=== PATIENT | male | born 1990 | race African-American/Black ===

== ENCOUNTER 2019-09-26 17:41 | Emergency (ER) | payer SELFPAY ==
--- NOTE | 2019-09-26 17:58 | EDM.PDOC ---
ED HPI GENERAL MEDICAL PROBLEM - General Chief Complaint: Cardiovascular Problem Stated Complaint: HIGH BLOOD PRESSURE Time Seen by Provider: 09/26/19 17:58 Source of Information: Reports: Patient History Limitations: Reports: No Limitations - History of Present Illness INITIAL COMMENTS - FREE TEXT/NARRATIVE: HISTORY AND PHYSICAL: History of present illness: Patient is a 29-year-old male presents to the ED with complaint of high blood pressure. Patient states this morning he felt like his heart was racing and he was dizzy. He states he felt like his blood pressure was high at that time but did not take his BP. He states the symptoms have since resolved. He denies any chest pain, shortness of breath, fevers, chills, cough, nausea, vomiting, head injury or trauma. He denies significant past medical history. Smokes 1ppd x 5 years. Denies alcohol or illicit drug use. Review of systems: As per history of present illness and below otherwise all systems reviewed and negative. Past medical history: As per history of present illness and as reviewed below otherwise noncontributory. Surgical history: As per history of present illness and as reviewed below otherwise noncontributory. Social history: No reported history of drug or alcohol abuse. Family history: As per history of present illness and as reviewed below otherwise noncontributory. Physical exam: General: Patient sitting comfortably in no acute distress and nontoxic appearing HEENT: Atraumatic, normocephalic, pupils reactive, negative for conjunctival pallor or scleral icterus, mucous membranes moist, throat clear, neck supple, nontender, trachea midline. No meningeal signs. Lungs: Clear to auscultation, breath sounds equal bilaterally, chest nontender. Heart: S1S2, regular, negative for clicks, rubs, or overt murmur. Abdomen: Soft, nondistended, nontender. Negative for masses or hepatosplenomegaly. Negative for costovertebral tenderness. No rigidity, rebound , guarding. Pelvis: Stable nontender. Genitourinary: Deferred. Rectal: Deferred. Extremities: Atraumatic, negative for cords or calf pain. Neurovascular unremarkable. Neuro: Awake, alert, oriented. Cranial nerves II through XII unremarkable. Cerebellum unremarkable. Motor and sensory unremarkable throughout. Exam nonfocal. Notes: EKG shows normal sinus rhythm with rate of 70. No STEMI on EKG. Discussed with patient that blood pressure is elevated (185/134), patient remains asymptomatic. He was offered medication to reduce blood pressure in ED, which he declined and requesting discharge home. BP at time of discharge was 166 /112. He was advised to follow up with primary care provider and to return to ED if new or worsening symptoms. Diagnostics: CBC, CMP, troponin, EKG Therapeutics: declined Prescriptions: none Impression: Elevated blood pressure Plan: Follow up with primary care provider Return to ED as needed as discussed Definitive disposition and diagnosis as appropriate pending reevaluation and review of above. - Related Data Allergies Allergy/AdvReac Type Severity Reaction Status Date / Time No Known Allergies Allergy Verified 09/26/19 17:57 Home Meds: Home Meds . [No Known Home Meds] 09/26/19 [History] ED ROS GENERAL - Review of Systems Review Of Systems: Comprehensive ROS is negative, except as noted in HPI. ED EXAM, GENERAL - Physical Exam Exam: See Below (see dictation) Course - Vital Signs Last Recorded V/S: Last Vital Signs Temp 97.1 F 09/26/19 17:47 Pulse 69 09/26/19 19:00 Resp 16 09/26/19 19:00 BP 166/112 H 09/26/19 19:00 Pulse Ox 99 09/26/19 19:00 Orthostatic Blood Pressure [ 185/134 Standing] Orthostatic Blood Pressure [ 185/131 Sitting] Orthostatic Blood Pressure [ 185/125 Supine] - Orders/Labs/Meds Orders: Active Orders 24 hr Category Date Time Status EKG Documentation Completion [RC] STAT Care 09/26/19 18:04 Active Orthostatic Vital Signs [RC] ASDIRECTED Care 09/26/19 18:04 Active UA RFX ALISSA AND CULT IF INDIC [URIN] Stat Lab 09/26/19 18:19 Ordered Sodium Chloride 0.9% [Saline Flush] Med 09/26/19 18:19 Active 10 ml FLUSH ASDIRECTED PRN Sodium Chloride 0.9% [Saline Flush] Med 09/26/19 18:19 Active 2.5 ml FLUSH ASDIRECTED PRN Saline Lock Insert [OM.PC] Stat Oth 09/26/19 18:19 Ordered Medication Orders Sodium Chloride (Saline Flush) 10 ml FLUSH ASDIRECTED PRN PRN Reason: Keep Vein Open Sodium Chloride (Saline Flush) 2.5 ml FLUSH ASDIRECTED PRN PRN Reason: Keep Vein Open Labs: Laboratory Tests 09/26/19 09/26/19 Range/Units 18:33 18:33 WBC 7.77 (4.0-11.0) K/uL RBC 5.23 (4.50-5.90) M/uL Hgb 17.9 H (13.0-17.0) g/dL Hct 49.6 (38.0-50.0) % MCV 94.8 (80.0-98.0) fL MCH 34.2 H (27.0-32.0) pg MCHC 36.1 (31.0-37.0) g/dL RDW Std Deviation 42.8 (28.0-62.0) fl RDW Coeff of Osmany 12 (11.0-15.0) % Plt Count 180 (150-400) K/uL MPV 10.00 (7.40-12.00) fL Neut % (Auto) 59.4 (48.0-80.0) % Lymph % (Auto) 32.0 (16.0-40.0) % Loup % (Auto) 8.5 (0.0-15.0) % Eos % (Auto) 0.0 (0.0-7.0) % Baso % (Auto) 0.1 (0.0-1.5) % Neut # (Auto) 4.6 (1.4-5.7) K/uL Lymph # (Auto) 2.5 H (0.6-2.4) K/uL Loup # (Auto) 0.7 (0.0-0.8) K/uL Eos # (Auto) 0.0 (0.0-0.7) K/uL Baso # (Auto) 0.0 (0.0-0.1) K/uL Nucleated RBC % 0.0 /100WBC Nucleated RBCs # 0 K/uL Sodium 140 (136-148) mmol/L Potassium 3.5 (3.5-5.1) mmol/L Chloride 103 (98-107) mmol/L Carbon Dioxide 29.3 (21.0-32.0) mmol/L BUN 13 (7.0-18.0) mg/dL Creatinine 1.0 (0.8-1.3) mg/dL Est Cr Clr Drug Dosing 79.44 mL/min Estimated GFR (MDRD) > 60.0 ml/min Glucose 89 (74-106) mg/dL Calcium 9.2 (8.5-10.1) mg/dL Total Bilirubin 0.8 (0.2-1.0) mg/dL AST 31 (15-37) IU/L ALT 34 (14-63) IU/L Alkaline Phosphatase 77 (46-116) U/L Troponin I < 0.050 (0.000-0.056) ng/mL Total Protein 8.4 H (6.4-8.2) g/dL Albumin 4.5 (3.4-5.0) g/dL Globulin 3.9 (2.6-4.0) g/dL Albumin/Globulin Ratio 1.2 (0.9-1.6) Meds: Medications Generic Name Dose Route Start Last Admin Trade Name Freq PRN Reason Stop Dose Admin Sodium Chloride 10 ml 09/26/19 18:19 Saline Flush FLUSH ASDIRECTED PRN Keep Vein Open Sodium Chloride 2.5 ml 09/26/19 18:19 Saline Flush FLUSH ASDIRECTED PRN Keep Vein Open Discontinued Medications Generic Name Dose Route Start Last Admin Trade Name Freq PRN Reason Stop Dose Admin Labetalol HCl 20 mg 09/26/19 19:08 Normodyne IVPUSH 09/26/19 19:09 ONETIME ONE Protocol Departure - Departure Time of Disposition: 19:15 Disposition: Home, Self-Care 01 Condition: Good Clinical Impression: Elevated blood pressure reading Referrals: PCP,None [Primary Care Provider] - Forms: ED Department Discharge Additional Instructions: The following information is given to patients seen in the emergency department who are being discharged to home. This information is to outline your options for follow-up care. We provide all patients seen in our emergency department with a follow-up referral. The need for follow-up, as well as the timing and circumstances, are variable depending upon the specifics of your emergency department visit. If you don't have a primary care physician on staff, we will provide you with a referral. We always advise you to contact your personal physician following an emergency department visit to inform them of the circumstance of the visit and for follow-up with them and/or the need for any referrals to a consulting specialist. The emergency department will also refer you to a specialist when appropriate. This referral assures that you have the opportunity for follow-up care with a specialist. All of these measure are taken in an effort to provide you with optimal care, which includes your follow-up. Under all circumstances we always encourage you to contact your private physician who remains a resource for coordinating your care. When calling for follow-up care, please make the office aware that this follow-up is from your recent emergency room visit. If for any reason you are refused follow-up, please contact the [facility] Emergency Department at and asked to speak to the emergency department charge nurse. [facility] [address] [place] [address] [id number] [address] Follow up with primary care provider Return to ED as needed as discussed Sepsis Event Note - Evaluation Sepsis Screening Result: No Definite Risk - Focused Exam Vital Signs: Vital Signs Temp Pulse Resp BP Pulse Ox 09/26/19 19:00 69 16 166/112 H 99 09/26/19 18:30 83 16 185/134 H 97 09/26/19 17:47 97.1 F 80 16 171/107 H 97 Date Exam was Performed: 09/26/19 Time Exam was Performed: 19:16 - My Orders Last 24 Hours: My Active Orders 09/26/19 18:04 EKG Documentation Completion [RC] STAT Orthostatic Vital Signs [RC] ASDIRECTED 09/26/19 18:19 UA RFX ALISSA AND CULT IF INDIC [URIN] Stat Sodium Chloride 0.9% [Saline Flush] 10 ml FLUSH ASDIRECTED PRN Sodium Chloride 0.9% [Saline Flush] 2.5 ml FLUSH ASDIRECTED PRN Saline Lock Insert [OM.PC] Stat - Assessment/Plan Last 24 Hours: My Active Orders 09/26/19 18:04 EKG Documentation Completion [RC] STAT Orthostatic Vital Signs [RC] ASDIRECTED 09/26/19 18:19 UA RFX ALISSA AND CULT IF INDIC [URIN] Stat Sodium Chloride 0.9% [Saline Flush] 10 ml FLUSH ASDIRECTED PRN Sodium Chloride 0.9% [Saline Flush] 2.5 ml FLUSH ASDIRECTED PRN Saline Lock Insert [OM.PC] Stat
[2019-09-26] MEDS ORDERED: Sodium Chloride 0.9% 10 ML Syringe FLUSH PRN (18:19)
[2019-09-26] MEDS ORDERED: Sodium Chloride 0.9% 2.5 ML Syringe FLUSH PRN (18:19)
[2019-09-26 19:04] LABS: BLOOD UREA NITROGEN,BUN 13 mg/dL (7.0-18.0); CARBON DIOXIDE,CO2 29.3 mmol/L (21.0-32.0); CHLORIDE,CL 103 mmol/L (98-107); GLUCOSE RANDOM 89 mg/dL (74-106); POTASSIUM,K 3.5 mmol/L (3.5-5.1); SODIUM,NA 140 mmol/L (136-148)
[2019-09-26] MEDS ORDERED: Labetalol 100 MG/20 ML MDV IVPUSH ONE (19:08)
== END 2019-09-26 19:32 | disposition home or self-care (01) ==
LOC: MW.ED 17:41
DX: R03.0 Elevated blood-pressure reading, without diagnosis of hypertension (principal)
CPT/HCPCS: 36415; 80053; 84484; 85025; 93005; 99282; 99283-25

== ENCOUNTER 2020-01-29 05:31 | Emergency (ER) | payer SELFPAY ==
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
== END 2020-01-29 06:38 ==
LOC: MW.ED 05:31
DX: S10.93XA Contusion of unspecified part of neck, initial encounter (principal); I10 Essential (primary) hypertension; X58.XXXA Exposure to other specified factors, initial encounter
CPT/HCPCS: 99282; 99283

== ENCOUNTER 2020-01-31 12:06 | Emergency (ER) | payer SELFPAY ==
[2020-01-31] MEDS ORDERED: Diphtheria,Pertussis(Acell),Tetanus Vaccine 0.5 ML Syringe IM ONE (13:01)
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
--- NOTE | 2020-01-31 13:27 | CR ---
Left wrist: 3 views left wrist were obtained. Comparison: No prior wrist studies available. Findings: Lunate bone is tilted anteriorly. There is widening of the distance between the navicular bone and lunate bone compatible with intercarpal ligament rupture. No acute fracture or dislocation is otherwise seen. Impression: 1. Findings compatible with intercarpal ligament rupture between the navicular bone lunate. Lunate is anteriorly angulated which is abnormal. Uncertain if this finding is acute or chronic. 2. No other acute finding is appreciated. Diagnostic code #3 This report was dictated in MDT
== END 2020-01-31 14:30 | disposition home or self-care (01) ==
LOC: MW.ED 12:06
DX: S63.392A Traumatic rupture of other ligament of left wrist, initial encounter (principal); S00.81XA Abrasion of other part of head, initial encounter; Y04.0XXA Assault by unarmed brawl or fight, initial encounter
CPT/HCPCS: 29125; 73110-26-LT; 73110-LT; 99283

== ENCOUNTER 2020-07-11 18:30 | Emergency (ER) | payer SELFPAY ==
[2020-07-11] MEDS ORDERED: Ketorolac 30 MG/ML SDV IM STA (21:02)
[2020-07-11] MEDS ORDERED: Diphtheria,Pertussis(Acell),Tetanus Vaccine 0.5 ML Syringe IM ONE (21:04)
[2020-07-11] MEDS ORDERED: Diphtheria,Pertussis(Acell),Tetanus Vaccine 0.5 ML Syringe ONE (21:13)
--- NOTE | 2020-07-11 21:39 | CR ---
HISTORY: Left hand injury. TECHNIQUE: Two views of left hand. COMPARISON: No prior. FINDINGS: No acute fracture or dislocation. Joint spaces are maintained. No radiopaque foreign body or soft tissue gas. IMPRESSION: No acute fracture or dislocation. Dictated by Myron Aquino MD @ Jul 11 2020 9:37PM Signed by Dr. Myron Aquino @ Jul 11 2020 9:38PM
[2020-07-11] MEDS ORDERED: Lidocaine 1% 10 ML MDV INJECT ONE (21:43)
[2020-07-11] MEDS ORDERED: Cephalexin 500 MG Cap PO ONE (21:44)
[2020-07-11] MEDS ORDERED: Sulfamethoxazole/Trimethoprim 800-160 MG Tab PO ONE (21:44)
[2020-07-11] MEDS ORDERED: Bacitracin Oint 1 GM U/D Packet ONE (22:27)
[2020-07-11] MEDS ORDERED: Bacitracin Oint 1 GM U/D Packet TOP ONE (22:35)
--- NOTE | 2020-07-11 22:42 | EDM.PDOC ---
ED HPI GENERAL MEDICAL PROBLEM - General Chief Complaint: Upper Extremity Injury/Pain Stated Complaint: RT HAND INJURY Time Seen by Provider: 07/11/20 20:19 - History of Present Illness INITIAL COMMENTS - FREE TEXT/NARRATIVE: CHIEF COMPLAINT(S): Right thumb pain and injury HISTORY OF PRESENT ILLNESS: This is a 30-year-old man with out any significant past medical history who comes to the emergency department with a chief com plaint of right thumb pain and injury. The patient states that approximately 3 days ago he smashed his right thumb in a metal door at work. He states that since that time he has been experiencing 10 out of 10 throbbing pain in his right thumb. The patient is right-hand dominant. He states that there is no radiation of this pain but he cannot move his thumb secondary to pain. He denies any redness but states that there is some swelling. He states that he was sent here by occupational health for evaluation. He denies any other injuries. He denies any numbness or tingling. He states that the pain is exacerbated by movement. There is nothing that seems to be relieving it however he has not tried any pain medications. He states that he does not know if his tetanus is up-to-date. REVIEW OF SYSTEMS: Constitutional: Denies fever, chills. Eyes: Denies eye pain Ears, Nose, Mouth, & Throat: Denies earache Cardiovascular: Denies chest pain Respiratory: Denies shortness of breath Gastrointestinal: Denies Nausea, vomiting, diarrhea, hematochezia. Genitourinary: Denies hematuria Skin:Denies a rash MSK: Positive for right thumb pain and swelling Neurological: Denies blurred vision, numbness, tingling, weakness Psychiatric: Denies depression PAST MEDICAL HISTORY: As per history of present illness and as reviewed below otherwise noncontributory. SURGICAL HISTORY: As per history of present illness and as reviewed below otherwise noncontributory. SOCIAL HISTORY: As per history of present illness and as reviewed below otherwise noncontributory. FAMILY HISTORY: As per history of present illness and as reviewed below otherwise noncontributory. EXAMINATION OF ORGAN SYSTEMS/BODY AREAS: Constitutional: Blood pressure is 209/143, heart rate 70, respiratory rate 16 with an oxygen saturation 9 9% on room air. Temperature 36.4 General: Young man who appears to be in a moderate amount of pain. Psychiatric: Appears anxious and is moving around however cooperative Eyes: No scleral icterus or conjunctival erythema Cardiovascular: Regular, rate, and rhythm. No gallops, murmurs, or rubs. Bilateral upper extremity pulses symmetric and intact. No peripheral edema. No JVD. Respiratory: Lungs clear to auscultation bilaterally. No wheezes, rales, or rhonchi. Musculoskeletal: The patient does have motion of his right thumb however is limited secondary to pain. The patient's distal right thumb is swollen and mildly erythematous with mild fluctuance. There is less than 25% subungual hematoma. There is no paronychia. There is anatomical snuffbox tenderness. The patient has full range of motion at the wrist. No obvious deformities. Skin: Distal right thumb is erythematous and swollen Neurological: Alert, GCS 15 distal sensation is intact MEDICAL DECISION MAKING AND COURSE IN THE ED WITH INTERPRETATION/REVIEW OF DIAGNOSTIC STUDIES: This is a 30-year-old man without any reported past medical history who comes to the emergency department with right thumb injury who has evidence of a mild subungual hematoma with a distal right thumb that is swollen and erythematous concerning for felon with scaphoid tenderness on examination. Will obtain an x-ray of his right hand to evaluate. We will provide the patient with Toradol IM for pain relief. The radiological images were viewed by myself along with reading the report from the radiologist. X-ray of the right hand does not reveal any fracture or dislocation. On reevaluation, the patient had continued pain. I did discuss with him at this time that I do believe we need to do an incision and drainage for a felon. I started the patient on Keflex and Bactrim for presumed felon at this time. He was amenable to incision and drainage. He refused his tetanus shot. Incision and drainage was performed by myself. The area was prepped with povidone and a dental block was performed with 1% lidocaine with 1 cc injection on the lateral side of the thumb. An incision was made with an 11 blade on the radial side of the thumb. No obvious purulent material was drained. Bacitracin was applied and a hemostatic dressing was placed Given that the patient is right-hand dominant and there is concern for scaphoid fracture and felon I did contact hand surgery and at [facility] in [place] and spoke with he recommended thumb spica splint and follow-up tomorrow in his clinic. I did discuss the plan with the patient. He was amenable to this plan. He was provided with discharge instructions. He is provided with strict return precautions. He is amenable to discharge and had no further questions Thumb spica splint was placed by RN. Post splint placement revealed distal capillary refill less than 2 seconds and distal sensation intact. DISPOSITION: The patient was discharged home in stable condition. The patient will follow up with hand surgery tomorrow CONDITION: Fair PROCEDURES: Incision and drainage of right thumb felon, FINAL IMPRESSION(S)/DIAGNOSES: 1. Acute right thumb injury, suspect scaphoid fracture 2. Acute right thumb felon status post incision and drainage 3. Acute small right thumb subungual hematoma DME: Right thumb spica splint Indication: Anatomical snuffbox tenderness, concern for scaphoid fracture Benefit: Immobilization Duration: Until follow-up with hand surgery Gilberto Mckee M.D. right thumb Pain Score (Numeric/FACES): 10 - Related Data Allergies Allergy/AdvReac Type Severity Reaction Status Date / Time No Known Allergies Allergy Verified 07/11/20 20:11 Home Meds: Home Meds Acetaminophen [Tylenol Extra Strength] 500 mg PO Q6HR #28 tablet 07/11/20 [Rx] Ibuprofen 400 mg PO Q6HR #28 tablet 07/11/20 [Rx] Sulfamethoxazole/Trimethoprim [Bactrim Ds Tablet] 1 each PO BID #14 tablet 07/11/20 [Rx] cephALEXin [Cephalexin] 500 mg PO Q6HR #28 tablet 07/11/20 [Rx] Past Medical History - Past Health History Medical/Surgical History: Denies Medical/Surgical History HEENT History: Reports: None Cardiovascular History: Reports: None Respiratory History: Reports: None Gastrointestinal History: Reports: None Genitourinary History: Reports: None Musculoskeletal History: Reports: None Neurological History: Reports: None Psychiatric History: Reports: None Endocrine/Metabolic History: Reports: None Hematologic History: Reports: None Immunologic History: Reports: None Oncologic (Cancer) History: Reports: None Dermatologic History: Reports: None - Infectious Disease History Infectious Disease History: Reports: None - Past Surgical History Head Surgeries/Procedures: Reports: None Social & Family History - Family History Family Medical History: No Pertinent Family History HEENT: Reports: None - Caffeine Use Caffeine Use: Reports: None - Recreational Drug Use Recreational Drug Use: No Review of Systems - Review of Systems Review Of Systems: See Below ED EXAM, GENERAL - Physical Exam Exam: See Below Course - Vital Signs Last Recorded V/S: Last Vital Signs Temp 36.4 C 07/11/20 20:09 Pulse 60 07/11/20 23:00 Resp 18 07/11/20 23:00 BP 180/112 H 07/11/20 23:00 Pulse Ox 97 07/11/20 23:00 - Orders/Labs/Meds Meds: Medications Discontinued Medications Generic Name Dose Route Start Last Admin Trade Name Freq PRN Reason Stop Dose Admin Bacitracin Confirm 07/11/20 22:27 07/11/20 22:57 Bacitracin Oint 1 Gm Administered 07/11/20 22:28 Not Given Dose 1 dose .ROUTE .STK-MED ONE Bacitracin 1 dose 07/11/20 22:35 07/11/20 22:37 Bacitracin Oint 1 Gm TOP 07/11/20 22:36 1 dose ONETIME ONE Administration Cephalexin 500 mg 07/11/20 21:44 07/11/20 22:03 Keflex PO 07/11/20 21:45 500 mg ONETIME ONE Administration Diphtheria/Tetanus/Acell Pertussis 0.5 ml 07/11/20 21:04 07/11/20 21:11 Boostrix IM 07/11/20 21:05 Not Given .ONCE ONE Diphtheria/Tetanus/Acell Pertussis Confirm 07/11/20 21:13 07/11/20 21:30 Boostrix Administered 07/11/20 21:14 Not Given Dose 0.5 ml .ROUTE .STK-MED ONE Ketorolac Tromethamine 30 mg 07/11/20 21:02 07/11/20 21:08 Toradol IM 07/11/20 21:03 30 mg NOW STA Administration Lidocaine HCl 10 ml 07/11/20 21:43 07/11/20 22:03 Xylocaine 1% INJECT 07/11/20 21:44 Not Given ONETIME ONE Lidocaine HCl Confirm 07/11/20 21:49 07/11/20 22:03 Xylocaine-Mpf 1% Administered 07/11/20 21:50 Not Given Dose 5 ml .ROUTE .STK-MED ONE Lidocaine HCl 5 ml 07/11/20 21:52 07/11/20 22:03 Xylocaine-Mpf 1% INJECT 07/11/20 21:53 5 ml ONETIME ONE Administration Trimethoprim/Sulfamethoxazole 1 tab 07/11/20 21:44 07/11/20 22:03 Septra Ds PO 07/11/20 21:45 1 tab ONETIME ONE Administration Departure - Departure Time of Disposition: 22:41 Disposition: Home, Self-Care 01 Condition: Fair Clinical Impression: Felon, Scaphoid fracture - Discharge Information *PRESCRIPTION DRUG MONITORING PROGRAM REVIEWED*: No *COPY OF PRESCRIPTION DRUG MONITORING REPORT IN PATIENT SALVADOR: No Prescriptions: Sulfamethoxazole/Trimethoprim [Bactrim Ds Tablet] 1 each PO BID #14 tablet cephALEXin [Cephalexin] 500 mg PO Q6HR #28 tablet Ibuprofen 400 mg PO Q6HR #28 tablet Acetaminophen [Tylenol Extra Strength] 500 mg PO Q6HR #28 tablet Instructions: Skin Abscess, [id number], Pain Medicine Instructions, [id number], Scaphoid Fracture Referrals: PCP,None [Primary Care Provider] - Forms: ED Department Discharge Additional Instructions: You were evaluated today on an emergent basis. At this time you may have a fracture of the scaphoid however this was not evident on x-ray. I recommend you follow-up with Hand Surgery tomorrow. In addition we did perform an incision and drainage of your thumb as there could be a felon which is an infection of the tip of your finger. I do recommend use Keflex and Bactrim as prescribed. Please use Tylenol and Motrin for pain relief. If you have any new or worsening symptoms please return to the emergency department. Please use: Tylenol 500-1000mg every 6 hours (DO NOT TAKE MORE THAN 4000mg in 1 day) Ibuprofen 400mg every 6 hours (Take with food as it can cause ulcers, GI upset) Example schedule: 8:00 AM (Tylenol 500-1000mg) 11:00 AM (Ibuprofen 400mg) 2:00 PM (Tylenol 500-1000mg) 5:00 PM (Ibuprofen 400mg) Ice the area 20 minutes 4 times per day Hand Surgery Dr. Sophia Condon, [place] [phone] The patient is informed of any results of their evaluation and diagnostic workup and all questions are answered. They are given discharge instructions and return precautions. The patient is stable for discharge. The patient states they understand and agree with the plan and that they will return if their symptoms get worse or if they have any new concerns. The following information is given to patients seen in the emergency department who are being discharged to home. This information is to outline your options for follow-up care. We provide all patients seen in our emergency department with a follow-up referral. The need for follow-up, as well as the timing and circumstances, are variable depending upon the specifics of your emergency department visit. If you don't have a primary care physician on staff, we will provide you with a referral. We always advise you to contact your personal physician following an emergency department visit to inform them of the circumstance of the visit and for follow-up with them and/or the need for any referrals to a consulting specialist. The emergency department will also refer you to a specialist when appropriate. This referral assures that you have the opportunity for follow-up care with a specialist. All of these measure are taken in an effort to provide you with optimal care, which includes your follow-up. Under all circumstances we always encourage you to contact your private physician who remains a resource for coordinating your care. When calling for follow-up care, please make the office aware that this follow-up is from your recent emergency room visit. If for any reason you are refused follow-up, please contact the [facility] Emergency Department at and asked to speak to the emergency department charge nurse. Sepsis Event Note (ED) - Evaluation Sepsis Screening Result: No Definite Risk
== END 2020-07-11 23:00 | disposition home or self-care (01) ==
LOC: MW.ED 18:30
DX: S60.111A Contusion of right thumb with damage to nail, initial encounter (principal); L03.011 Cellulitis of right finger; W23.0XXA Caught, crushed, jammed, or pinched between moving objects, initial encounter; Y99.0 Civilian activity done for income or pay
CPT/HCPCS: 26011; 29125; 73120; 96372; 99283; A9270; J1885; 10060; 29130

== ENCOUNTER 2021-05-01 23:11 | Emergency (ER) | payer SELFPAY ==
--- NOTE | 2021-05-01 23:24 | EDM.PDOC ---
ED HPI GENERAL MEDICAL PROBLEM - General Stated Complaint: CHILLS, BODY ACHES Time Seen by Provider: 05/01/21 23:12 Source of Information: Reports: Patient History Limitations: Reports: No Limitations - History of Present Illness INITIAL COMMENTS - FREE TEXT/NARRATIVE: 30-year-old male presents for chills and body aches. Patient states his symptoms started yesterday. His pain is primarily in his lower back and his legs on both sides. "Feels like my blood is frozen on the inside". No associated cough, shortness of breath, fevers. Back Pain Score (Numeric/FACES): 10 - Related Data Allergies Allergy/AdvReac Type Severity Reaction Status Date / Time No Known Allergies Allergy Verified 05/01/21 23:25 Home Meds: Home Meds Acetaminophen [Tylenol Extra Strength] 500 mg PO Q6HR #28 tablet 07/11/20 [Rx] Ibuprofen 400 mg PO Q6HR #28 tablet 07/11/20 [Rx] Sulfamethoxazole/Trimethoprim [Bactrim Ds Tablet] 1 each PO BID #14 tablet 07/11/20 [Rx] cephALEXin [Cephalexin] 500 mg PO Q6HR #28 tablet 07/11/20 [Rx] Past Medical History - Past Health History Medical/Surgical History: Denies Medical/Surgical History HEENT History: Reports: None Cardiovascular History: Reports: None Respiratory History: Reports: None Gastrointestinal History: Reports: None Genitourinary History: Reports: None Musculoskeletal History: Reports: None Neurological History: Reports: None Psychiatric History: Reports: None Endocrine/Metabolic History: Reports: None Hematologic History: Reports: None Immunologic History: Reports: None Oncologic (Cancer) History: Reports: None Dermatologic History: Reports: None - Infectious Disease History Infectious Disease History: Reports: None - Past Surgical History Head Surgeries/Procedures: Reports: None Social & Family History - Family History Family Medical History: No Pertinent Family History HEENT: Reports: None - Caffeine Use Caffeine Use: Reports: None ED ROS GENERAL - Review of Systems Review Of Systems: Comprehensive ROS is negative, except as noted in HPI. ED EXAM, GENERAL - Physical Exam Exam: See Below Exam Limited By: No Limitations General Appearance: Alert, WD/WN, No Apparent Distress Ears: Hearing Grossly Normal Throat/Mouth: Normal Voice, No Airway Compromise Head: Atraumatic, Normocephalic Respiratory/Chest: No Respiratory Distress, Lungs Clear, Normal Breath Sounds, No Accessory Muscle Use Cardiovascular: Normal Peripheral Pulses, Regular Rate, Rhythm Extremities: Normal Inspection Neurological: Alert, Normal Cognition, Normal Gait Psychiatric: Normal Affect, Normal Mood Skin Exam: Warm, Dry, Intact, Normal Color Course - Vital Signs Last Recorded V/S: Last Vital Signs Temp 96.9 F 05/01/21 23:25 Pulse 88 05/01/21 23:25 Resp 16 05/01/21 23:25 BP 134/81 05/01/21 23:25 Pulse Ox 97 05/01/21 23:25 - Orders/Labs/Meds Labs: Laboratory Tests 05/01/21 Range/Units 23:30 Influenza Type A RNA NEGATIVE (NEGATIVE) Influenza Type B RNA NEGATIVE (NEGATIVE) SARS-CoV-2 RNA ([facility]) POSITIVE H (NEGATIVE) Meds: Medications Discontinued Medications Generic Name Dose Route Start Last Admin Trade Name Freq PRN Reason Stop Dose Admin Acetaminophen 1,000 mg 05/01/21 23:48 05/01/21 23:53 Acetaminophen 500 Mg Tab PO 05/01/21 23:49 1,000 mg ONETIME ONE Administration Cyclobenzaprine HCl 10 mg 05/01/21 23:48 05/01/21 23:53 Cyclobenzaprine 10 Mg Tab PO 05/01/21 23:49 10 mg ONETIME ONE Administration Ibuprofen 600 mg 05/01/21 23:48 05/01/21 23:54 Ibuprofen 600 Mg Tab PO 05/01/21 23:49 600 mg ONETIME ONE Administration - Re-Assessments/Exams Free Text/Narrative Re-Assessment/Exam: 05/01/21 23:49 We will get Covid and influenza swab. Will treat symptomatically with Motrin Flexeril. 05/02/21 00:32 COVID test is positive. Departure - Departure Time of Disposition: 00:32 Disposition: Home, Self-Care 01 Condition: Good Clinical Impression: COVID-19 - Discharge Information Instructions: COVID-19: What to Do If You Are Sick- CDC (07/20/2020) Referrals: PCP,None [Primary Care Provider] - Additional Instructions: Your Covid test is positive. You should isolate at home until cleared by the [facility]. They will call you and they can fax a letter or email letter given clearance to go back to work. You can treat your symptoms at home with Tylenol or Motrin. If you develop difficulty breathing or pain in your chest then please come back to the hospital so we can reassess you. The following information is given to patients seen in the emergency department who are being discharged to home. This information is to outline your options for follow-up care. We provide all patients seen in our emergency department with a follow-up referral. The need for follow-up, as well as the timing and circumstances, are variable depending upon the specifics of your emergency department visit. If you don't have a primary care physician on staff, we will provide you with a referral. We always advise you to contact your personal physician following an emergency department visit to inform them of the circumstance of the visit and for follow-up with them and/or the need for any referrals to a consulting specialist. The emergency department will also refer you to a specialist when appropriate. This referral assures that you have the opportunity for follow-up care with a specialist. All of these measure are taken in an effort to provide you with optimal care, which includes your follow-up. Under all circumstances we always encourage you to contact your private physician who remains a resource for coordinating your care. When calling for follow-up care, please make the office aware that this follow-up is from your recent emergency room visit. If for any reason you are refused follow-up, please contact the [facility] Emergency Department at and asked to speak to the emergency department charge nurse. Please follow up with your primary care physician. If you do not have a primary care physician, see below: [facility] [address] [place] [id number] [facility] [address] [place] [address] [facility] [address], [place] [address] Sepsis Event Note (ED) - Focused Exam Vital Signs: Vital Signs Temp Pulse Resp BP Pulse Ox 05/01/21 23:25 96.9 F 88 16 134/81 97
[2021-05-01] MEDS ORDERED: Cyclobenzaprine 10 MG Tab PO ONE (23:48)
[2021-05-01] MEDS ORDERED: Acetaminophen 500 MG Tab PO ONE (23:48)
[2021-05-01] MEDS ORDERED: Ibuprofen 600 MG Tab PO ONE (23:48)
[2021-05-02 00:17] LABS: CORONAVIRUS COVID-19 NAA POSITIVE (NEGATIVE); INFLUENZA A NAA NEGATIVE (NEGATIVE); INFLUENZA B NAA NEGATIVE (NEGATIVE)
== END 2021-05-02 00:43 | disposition home or self-care (01) ==
LOC: MW.ED 23:11
DX: U07.1 COVID-19 (principal)
CPT/HCPCS: 0240U; 99283; A9270

== ENCOUNTER 2021-05-14 14:35 | Emergency (ER) | payer SELFPAY ==
[2021-05-14] MEDS ORDERED: Sodium Chloride 0.9% 2.5 ML Syringe FLUSH PRN (14:48)
[2021-05-14] MEDS ORDERED: Sodium Chloride 0.9% 1,000 ML IV ONE (14:48)
[2021-05-14] MEDS ORDERED: Sodium Chloride 0.9% 10 ML Syringe FLUSH PRN (14:48)
[2021-05-14] MEDS ORDERED: Ondansetron 4 MG/2 ML SDV IVPUSH ONE (15:34)
[2021-05-14] MEDS ORDERED: Pantoprazole 40 MG/10 ML Syringe IVPUSH ONE (15:34)
--- NOTE | 2021-05-14 15:35 | EDM.PDOC ---
ED HPI GENERAL MEDICAL PROBLEM - General Chief Complaint: Gastrointestinal Problem Stated Complaint: VOMITING BLOOD Time Seen by Provider: 05/14/21 15:30 - History of Present Illness INITIAL COMMENTS - FREE TEXT/NARRATIVE: History of present illness: [] This patient started vomiting last night. He has severe abdominal pain in the right lower quadrant. It is constant. Nothing makes it better or worse. Is not associated with fever. He does not have diarrhea or dysuria. Patient's pain began last night but is gotten worse this morning. Patient's just released from quarantine after having COVID-19 2 weeks ago. Patient's cough is markedly improved from prior. Review of systems: As per history of present illness and below otherwise all systems reviewed and negative. Past medical history: As per history of present illness and as reviewed below otherwise noncontributory. Surgical history: As per history of present illness and as reviewed below otherwise noncontributory. Social history: No reported history of drug or alcohol abuse. Family history: As per history of present illness and as reviewed below otherwise noncontributory. Physical exam: Constitutional - well developed, well-nourished and in no acute distress HEENT - normocephalic, no evidence of trauma - external nose and mouth normal - no mass in neck and no JVD - mucosae moist EYES - full EOM, PERRL, no icterus - no evidence of inflammation, injection, or drainage Respiratory - no respiratory distress, equal bilateral expansion, lungs clear to auscultation and no abnormal lung sounds Cardiovascular - Regular Rhythm with S1 and S2 appreciated and no murmur, gallop or rub. GI - abdomen soft without distension or organomegaly - normal bowel sounds - no guard or rebound Musculoskeletal no gross deformity of long bones or joints - no tenderness, swelling or edema Neurologic - Alert and oriented times four - CN II-XII grossly intact - motor sensory and coordination symmetrically normal Psychiatric - appropriate mood and affect with normal thought content Hematologic - No petechiae or purpura - mucosa appropriate color and sclera not pale - normal nail bed color and refill Integument - no rash or evidence of trauma - normal turgor Diagnostics: [] Therapeutics: [] Impression: [] Plan: [] Definitive disposition and diagnosis as appropriate pending reevaluation and review of above. Abdomen Pain Score (Numeric/FACES): 3 - Related Data Allergies Allergy/AdvReac Type Severity Reaction Status Date / Time No Known Allergies Allergy Verified 05/14/21 15:23 Home Meds: Home Meds Ondansetron [Zofran ODT] 4 mg PO Q6H PRN #6 tab.dis 05/14/21 [Rx] Past Medical History - Past Health History Medical/Surgical History: Denies Medical/Surgical History HEENT History: Reports: None Cardiovascular History: Reports: None Respiratory History: Reports: None Gastrointestinal History: Reports: None Genitourinary History: Reports: None Musculoskeletal History: Reports: None Neurological History: Reports: None Psychiatric History: Reports: None Endocrine/Metabolic History: Reports: None Hematologic History: Reports: None Immunologic History: Reports: None Oncologic (Cancer) History: Reports: None Dermatologic History: Reports: None - Infectious Disease History Infectious Disease History: Reports: None - Past Surgical History Head Surgeries/Procedures: Reports: None Social & Family History - Family History Family Medical History: No Pertinent Family History HEENT: Reports: None - Tobacco Use Second Hand Smoke Exposure: No - Caffeine Use Caffeine Use: Reports: None - Recreational Drug Use Recreational Drug Use: No ED ROS GENERAL - Review of Systems Review Of Systems: Comprehensive ROS is negative, except as noted in HPI. ED EXAM, GENERAL - Physical Exam Exam: See Below Free Text/Narrative:: My physical exam is in the HPI Course - Vital Signs Last Recorded V/S: Last Vital Signs Temp 36.8 C 05/14/21 15:19 Pulse 95 05/14/21 15:19 Resp 20 05/14/21 15:19 BP 142/98 H 05/14/21 15:19 Pulse Ox 98 05/14/21 15:19 - Orders/Labs/Meds Orders: Active Orders 24 hr Category Date Time Status CBC WITH AUTO DIFF [HEME] Stat Lab 05/14/21 14:47 Ordered COMPREHENSIVE METABOLIC PN,CMP [CHEM] Stat Lab 05/14/21 14:48 Ordered LIPASE [CHEM] Stat Lab 05/14/21 14:48 Ordered UA RFX ALISSA AND CULT IF INDIC [URIN] Stat Lab 05/14/21 14:48 Ordered Sodium Chloride 0.9% [Normal Saline] 1,000 ml Med 05/14/21 14:48 Active IV STAT Sodium Chloride 0.9% [Saline Flush] Med 05/14/21 14:48 Active 10 ml FLUSH ASDIRECTED PRN Sodium Chloride 0.9% [Saline Flush] Med 05/14/21 14:48 Active 2.5 ml FLUSH ASDIRECTED PRN Saline Lock Insert [OM.PC] Stat Oth 05/14/21 14:48 Ordered Medication Orders Sodium Chloride (Normal Saline) 1,000 mls @ 999 mls/hr IV STAT ONE Stop: 05/14/21 15:48 Sodium Chloride (Sodium Chloride 0.9% 10 Ml Syringe) 10 ml FLUSH ASDIRECTED PRN PRN Reason: Keep Vein Open Sodium Chloride (Sodium Chloride 0.9% 2.5 Ml Syringe) 2.5 ml FLUSH ASDIRECTED PRN PRN Reason: Keep Vein Open Meds: Medications Generic Name Dose Route Start Last Admin Trade Name Freq PRN Reason Stop Dose Admin Sodium Chloride 1,000 mls @ 999 mls/hr 05/14/21 14:48 Normal Saline IV 05/14/21 15:48 STAT ONE Sodium Chloride 10 ml 05/14/21 14:48 Sodium Chloride 0.9% 10 Ml Syringe FLUSH ASDIRECTED PRN Keep Vein Open Sodium Chloride 2.5 ml 05/14/21 14:48 Sodium Chloride 0.9% 2.5 Ml Syringe FLUSH ASDIRECTED PRN Keep Vein Open Discontinued Medications Generic Name Dose Route Start Last Admin Trade Name Mariella PRN Reason Stop Dose Admin Ondansetron HCl 4 mg 05/14/21 15:34 Ondansetron 4 Mg/2 Ml Sdv IVPUSH 05/14/21 15:35 ONETIME ONE Pantoprazole Sodium 40 mg 05/14/21 15:34 Pantoprazole 40 Mg/10 Ml Syringe IVPUSH 05/14/21 15:35 NOW ONE - Re-Assessments/Exams Free Text/Narrative Re-Assessment/Exam: 05/14/21 15:48 Patient said he was not concerned about any further work-up and wanted to be discharged with a release to work. Recheck abdomen he did not guard anywhere. He has no fever. He did not want a wait for lab work. Departure - Departure Time of Disposition: 15:46 Disposition: Home, Self-Care 01 Condition: Good Clinical Impression: Abdominal pain, Vomiting - Discharge Information Prescriptions: Ondansetron [Zofran ODT] 4 mg PO Q6H PRN #6 tab.dis PRN Reason: Nausea/Vomiting Instructions: Nausea and Vomiting, Adult, Abdominal Pain, Adult, [id number] Referrals: PCP,None [Primary Care Provider] - Forms: ED Department Discharge Additional Instructions: A prescription for nausea medicine went to [facility] pharmacy. They are up until 5 PM today. You should take famotidine or omeprazole or pantoprazole to reduce stomach acid and because he had some blood in your vomitus. These are all [id number]. [facility] [address] [place] [id number] [facility] [address] [place] [id number] The following information is given to patients seen in the emergency department who are being discharged to home. This information is to outline your options for follow-up care. We provide all patients seen in our emergency department with a follow-up referral. The need for follow-up, as well as the timing and circumstances, are variable depending upon the specifics of your emergency department visit. If you don't have a primary care physician on staff, we will provide you with a referral. We always advise you to contact your personal physician following an emergency department visit to inform them of the circumstance of the visit and for follow-up with them and/or the need for any referrals to a consulting specialist. The emergency department will also refer you to a specialist when appropriate. This referral assures that you have the opportunity for follow-up care with a specialist. All of these measure are taken in an effort to provide you with optimal care, which includes your follow-up. Under all circumstances we always encourage you to contact your private physician who remains a resource for coordinating your care. When calling for follow-up care, please make the office aware that this follow-up is from your recent emergency room visit. If for any reason you are refused follow-up, please contact the [facility] Emergency Department at and asked to speak to the emergency department charge nurse. Sepsis Event Note (ED) - Evaluation Sepsis Screening Result: No Definite Risk - Focused Exam Vital Signs: Vital Signs Temp Pulse Resp BP Pulse Ox 05/14/21 15:19 36.8 C 95 20 142/98 H 98
== END 2021-05-14 15:57 | disposition home or self-care (01) ==
LOC: MW.ED 14:35
DX: R11.10 Vomiting, unspecified (principal); R10.31 Right lower quadrant pain
CPT/HCPCS: 99284

== ENCOUNTER 2021-06-20 19:12 | Emergency (ER) | payer SELFPAY ==
[2021-06-20 20:32] LABS: CORONAVIRUS COVID-19 NAA NEGATIVE (NEGATIVE); INFLUENZA A NAA POSITIVE (NEGATIVE); INFLUENZA B NAA NEGATIVE (NEGATIVE)
[2021-06-20] MEDS ORDERED: Oseltamivir 75 MG Cap PO ONE (20:42)
== END 2021-06-20 21:18 | disposition home or self-care (01) ==
LOC: MW.ED 19:12
DX: J10.1 Influenza due to other identified influenza virus with other respiratory manifestations (principal); Z20.822 Contact with and (suspected) exposure to COVID-19
CPT/HCPCS: 0240U; 99283; A9270-GY